=== PATIENT | male | born 1960 | race Caucasian/White ===

== ENCOUNTER 2019-09-03 05:39 | Day surgery (SDC) | payer BC ==
[2019-09-03] MEDS ORDERED: Lactated Ringers 1,000 ML IV SCH (06:00)
[2019-09-03 06:38] VITALS: O2SAT 98
[2019-09-03] MEDS ORDERED: Lactated Ringers 1,000 ML IV ONE (06:43)
[2019-09-03] MEDS ORDERED: DIPRIVAN 200 MG/20 ML IV ONE (08:00)
--- NOTE | 2019-09-03 09:14 | OP ---
SURGERY DATE/TIME: 09/03/2019 0803 PREOPERATIVE DIAGNOSIS: History of colon polyps. POSTOPERATIVE DIAGNOSIS: Normal colon. PROCEDURE: Colonoscopy. SURGEON: Dr. Storm. ANESTHESIA: MAC. Medications given by anesthesia department. HISTORY: The patient is a 59 year-old white male patient presenting now. He had colon polyps removed five years ago. The patient was appraised of the risks of the procedure including the risk of perforation, phlebitis, untoward reaction to medication, bleeding, and missed lesions. The patient verbalized his understanding and desired to have the procedure performed. DESCRIPTION OF PROCEDURE: The patient was given the medications by the anesthesia department. The patient had continuous pulse oximetry, ECG monitoring, intermittent blood pressure monitoring and tidal CO2 monitoring during the examination. He was placed in the left lateral decubitus position. A digital rectal examination was performed and revealed normal anal sphincter tone, no masses and normal prostate. The flexible Olympus pediatric colonoscope was used to intubate the rectum. A view of the colon was developed sequentially to the cecum. Upon insertion and withdrawal, including a retroflex view in the rectum, no mucosal lesions were encountered. The scope was removed from the patient who tolerated the procedure well and was sent back to OP recovery in good condition. The prep was noted to be fair to good.
[2019-09-03 09:30] VITALS: BP 120/76; PULSE 55
== END 2019-09-03 09:35 | disposition home or self-care (01) ==
LOC: SDC 05:39
PROVIDERS: ATTEND Family Medicine
DX: Z09 Encounter for follow-up examination after completed treatment for conditions other than malignant neoplasm (principal); Z86.010 Personal history of colon polyps
CPT/HCPCS: J2704